=== PATIENT | male | born 1945 | race Caucasian/White ===

== ENCOUNTER 2021-07-28 13:04 | Emergency (ER) | payer MEDICARE, OTHER ==
[2021-07-28 13:49] LABS: BASOPHIL 0.8 % (0-2); HCT 44.2 % (42.0-52.0); HGB 15.3 g/dl (13.2-18.0); LYMPHOCYTE 32.4 % (15-48); MCH 31.9 pg (25.0-31.0); MCHC 34.6 g/dL (32.0-36.0); MCV 92.1 fL (78.0-100.0); MONOCYTE 6.8 % (0-12); MPV 10.3 fL (6.0-9.5); NEUTROPHIL 56.7 % (41-80); NRBC 0; PLT 209 K/uL (150-400); RDW 13.5 % (11.5-14.0); WBC 6.6 K/uL (4.0-10.5)
[2021-07-28 16:11] LABS: ALBUMIN 3.3 g/dL (3.4-5.0); BILIRUBIN - TOTAL 0.3 mg/dL (0.2-1.0); BUN/CREAT RATIO (CALC) 21.2 RATIO; CREATININE 0.8 mg/dL (0.67-1.17); GLOBULIN (CALCULATION) 4.6 g/dL; POTASSIUM 3.6 mmol/L (3.5-5.1); TOTAL PROTEIN 7.9 g/dL (6.4-8.2)
== END 2021-07-28 17:05 | disposition home or self-care (01) ==
LOC: FER 13:04
PROVIDERS: Emergency Medicine
DX: F41.1 Generalized anxiety disorder (principal)
CPT/HCPCS: 36415; 70450; 80053; 85025; 93005

== ENCOUNTER → 2021-10-07 | Day surgery (SDC) | payer MEDICARE, OTHER ==
[~2021-10-07] VITALS: Ht 175.3 cm; Wt 68.0 kg
[~2021-10-07] MED LIST: ARICEPT 5MG TABL5 MG PO; RIZATRIPTAN10 MG PO; TOPIRAMATE100 MG PO
== END | disposition home or self-care (01) ==
LOC: FAS 10:33
DX: K57.30 Diverticulosis of large intestine without perforation or abscess without bleeding (principal); D12.8 Benign neoplasm of rectum; M19.90 Unspecified osteoarthritis, unspecified site; G30.9 Alzheimer's disease, unspecified; F02.80 Dementia in other diseases classified elsewhere, unspecified severity, without behavioral disturbance, psychotic disturbance, mood disturbance, and anxiety; Z80.0 Family history of malignant neoplasm of digestive organs; Z86.010 Personal history of colon polyps; Z85.038 Personal history of other malignant neoplasm of large intestine
CPT/HCPCS: J1885; J2704; J7120

== ENCOUNTER → 2021-11-28 | Day surgery (SDC) | payer MEDICARE, OTHER ==
[~2021-11-28] VITALS: Ht 175.3 cm; Wt 68.0 kg
[~2021-11-28] MED LIST changes: +ACETAMINOPHEN500 M1 PO; +ASCORBIC ACID500 MG PO; +COD LIVER OIL1 EAC1 PO; +COLACE100 MG PO; +COQ-10100 MG PO; +CRANBERRY200 MG PO; +FLOMAX0.4 MG PO; +GARLIC200 MG PO; +GINKGO60 MG PO; +GINSENG100 MG PO; +L-LYSINE500 MG PO; +MOTRIN600 MG PO; +NYSTATIN SUSP1 ML/ML SSP; +OXY-IR 5MG5 MG PO; +RED YEAST RICE600 MG PO; +SAW PALMETTO160 MG PO; +VITAMIN E400 UNI4 PO
[2021-11-28 11:25] LABS: BILIRUBIN NEGATIVE (NEGATIVE); BLOOD 1+ Ery/uL (NEGATIVE); CLARITY CLEAR (CLEAR); COLOR YELLOW (YELLOW); GLUCOSE (U) NORMAL (NORMAL); LEUKOCYTES NEGATIVE Leu/uL (NEGATIVE); NITRITE NEGATIVE (NEGATIVE); PROTEIN NEGATIVE (NEGATIVE); UROBILINOGEN 0.2 mg/dL (0.2-1.0)
[2021-11-28 11:37] LABS: BACTERIA TRACE
== END | disposition home or self-care (01) ==
LOC: FAS 08:46
PROVIDERS: Student in an Organized Health Care Education/Training Program
DX: K40.91 Unilateral inguinal hernia, without obstruction or gangrene, recurrent (principal); D12.8 Benign neoplasm of rectum; K57.30 Diverticulosis of large intestine without perforation or abscess without bleeding; Z86.010 Personal history of colon polyps; Z80.0 Family history of malignant neoplasm of digestive organs; Z79.899 Other long term (current) drug therapy
CPT/HCPCS: 81001; J0690; J1644; J2370; J2405; J2704; J3010; J7120